=== PATIENT | female | born 1945 | race Two or more races ===

== ENCOUNTER 2020-03-11 07:37 | Outpatient (CLI) | payer OTHER | END 2020-03-11 07:48 | disposition home or self-care (01) | LOC: TOM 07:37 | PROVIDERS: ATTEND Internal Medicine Gastroenterology | DX: K56.600 Partial intestinal obstruction, unspecified as to cause (principal); K56.50 Intestinal adhesions [bands], unspecified as to partial versus complete obstruction; Z12.11 Encounter for screening for malignant neoplasm of colon ==